=== PATIENT | male | born 1955 | race Caucasian/White ===

== ENCOUNTER 2022-11-24 12:22 | Emergency (ER) | payer MEDICARE, OTHER | END 2022-11-24 16:31 | LOC: JD.ED 12:22 | DX: S12.400A Unspecified displaced fracture of fifth cervical vertebra, initial encounter for closed fracture (principal); S12.500A Unspecified displaced fracture of sixth cervical vertebra, initial encounter for closed fracture; S12.600A Unspecified displaced fracture of seventh cervical vertebra, initial encounter for closed fracture; S22.019A Unspecified fracture of first thoracic vertebra, initial encounter for closed fracture; W55.12XA Struck by horse, initial encounter | CPT/HCPCS: 70450; 70450-26; 72125; 72125-26; 99285 ==